=== PATIENT | male | born 1970 | race Asian ===

== ENCOUNTER 2019-04-13 06:30 | Day surgery (SDC) | payer OTHER ==
[~2019-04-13] VITALS: Ht 172.7 cm; Wt 67.3 kg
[~2019-04-13 06:30] MED LIST: SODIUM CHLORIDE 0.9% 1,000 ML IV ONE
[2019-04-13] MEDS ORDERED: LIDOCAINE 2% 30 ML JELLY TP ONE (06:31)
[2019-04-13] MEDS ORDERED: BENZOCAINE 20% 50 MCG/SPRAY 57 GM TP ONE (06:31)
[2019-04-13] MEDS ORDERED: ALBUTEROL SULFATE 2.5 MG/0.5 ML NEB SOLUTION NEB ONE (06:31)
[2019-04-13] MEDS ORDERED: LIDOCAINE 4% 50 ML SOLUTION TP ONE (06:31)
[2019-04-13] MEDS ORDERED: INSLAN SQ (07:21)
[2019-04-13] MEDS ORDERED: LISI-661 PO (07:21)
[2019-04-13] MEDS ORDERED: LORA1TAB3 PO (07:21)
[2019-04-13] MEDS ORDERED: LAMO100 PO (07:21)
[2019-04-13] MEDS ORDERED: PRAV10TA39 PO (07:21)
[2019-04-13] MEDS ORDERED: INSNOV SQ (07:21)
[2019-04-13 07:56] LABS: GLUCOMETER DEV NAME(LOC) SDS.; GLUCOSE,POINT OF CARE 127 MG/DL (70-110)
[2019-04-13] MEDS ORDERED: FentaNYL CITRATE-PF 100 MCG/2 ML VIAL ONE (08:20)
[2019-04-13] MEDS ORDERED: MIDAZOLAM HCL 2 MG/2 ML VIAL ONE (08:20)
[2019-04-13] MEDS ORDERED: MethylPREDNISolone SOD SUCC 125 MG/2 ML VIAL IVP ONE (08:45)
[2019-04-13] MEDS ORDERED: OXYGEN THERAPY IH SCH (20:00)
== END 2019-04-13 10:10 | disposition home or self-care (01) ==
LOC: SURGERY 06:30
PROVIDERS: ATTEND Internal Medicine Critical Care Medicine
DX: R05 Cough (principal); R91.1 Solitary pulmonary nodule; J34.89 Other specified disorders of nose and nasal sinuses; J98.8 Other specified respiratory disorders; J38.4 Edema of larynx; B37.0 Candidal stomatitis; I10 Essential (primary) hypertension; E11.9 Type 2 diabetes mellitus without complications; Z79.4 Long term (current) use of insulin; Z79.899 Other long term (current) drug therapy
CPT/HCPCS: 31623; 31624; 71045; 82962; 87015; 87070; 87077; 87101; 87186; 87205; 87206; 87220; 88108; 88312; J2250; J2930; J3010; J7030